=== PATIENT | female | born 1955 | race Caucasian/White ===

== ENCOUNTER 2019-09-10 21:10 | Emergency (ER) | payer OTHER ==
[2019-09-10 21:27] VITALS: BP 119/66; PULSE 56; TEMP 97.8; BMI 17.9
--- NOTE | 2019-09-10 22:47 | PDOC ---
Documentation entered by Marivel Tran SCRIBE, acting as scribe for Kelvin Bedolla MD. Kelvin Bedolla MD: This documentation has been prepared by the scribe, Marivel Tran SCRIBE, under my direction and personally reviewed by me in its entirety. I confirm that the documentation accurately reflects all work, treatment, procedures, and medical decision making performed by me. History of Present Illness - General Chief Complaint: Laceration Stated Complaint: LACERATION LEFT INDEX FINGER History Source: Patient Exam Limitations: No Limitations - History of Present Illness Initial Comments: 09/10/19 21:47 The patient is a 63-year-old female with no reported significant past medical history who presents to the emergency department with a laceration to the left index finger. The patient reports she was cutting kale with a knife when she accidentally cut her finger on the knife. Denies numbness or tingling. The patient reports her last tetanus was last year. Past History - Past Medical History Allergies/Adverse Reactions: Allergies Allergy/AdvReac Type Severity Reaction Status Date / Time Sulfa (Sulfonamide Allergy Verified 09/10/19 21:11 Antibiotics) Home Medications: Ambulatory Orders Levothyroxine Sodium [Synthroid] 200 mcg PO DAILY 09/10/19 Magnesium 30 mg PO DAILY 09/10/19 Magnesium 500 mg PO DAILY 09/10/19 Review of Systems - Review of Systems Able to Perform ROS?: Yes Comments:: 09/10/19 21:47 Constitutional - Pt denies Fever, Chills, weakness, HEENT: denies vision changes, sore throat Respiratory: Denies cough, sob, hemoptysis Cardiac: denies chest pain, palpitations, light headedness, leg swelling Abd/GI: denies abd pain, nausea, vomiting, blood per rectum, melena, diarrhea : denies dysuria, frequency, discharge Musculskelatal - denies back pain, joint swelling skin - +left index finger laceration. neurological: denies headache, numbness, focal weakness, tingling, ataxia, weakness hematologic: denies anemia, easy bruising, easy bleeding *Physical Exam - Vital Signs Last Vital Signs Temp Pulse Resp BP Pulse Ox 97.8 F 56 L 16 119/66 100 09/10/19 21:15 09/10/19 21:15 09/10/19 21:15 09/10/19 21:15 09/10/19 21:15 - Physical Exam Comments: 09/10/19 21:50 CONSTITUTIONAL: Well-appearing; well-nourished; in no apparent distress HEAD: Normocephalic; atraumatic NECK: Supple; non-tender EXT: Normal ROM in all four extremities; non-tender SKIN: +1cm laceration to the distal fingertip. Warm, dry, no rash Medical Decision Making - Medical Decision Making 09/11/19 04:39 lac repaired with topical skin adhesive [id number] Discharge - Discharge Information Problems reviewed: Yes Clinical Impression/Diagnosis: Laceration Condition: Stable Disposition: HOME - Follow up/Referral - Patient Discharge Instructions Patient Printed Discharge Instructions: DI for Laceration Repair With Dermabond - Post Discharge Activity
== END 2019-09-10 21:49 | disposition home or self-care (01) ==
LOC: FER 21:10
PROC: 0HQGXZZ Repair Left Hand Skin, External Approach (ICD-10-PCS; principal; 2019-09-10)
DX: S61.211A Laceration without foreign body of left index finger without damage to nail, initial encounter (principal); W26.0XXA Contact with knife, initial encounter; Y93.G1 Activity, food preparation and clean up; Y92.9 Unspecified place or not applicable
CPT/HCPCS: 99281-25

== ENCOUNTER 2020-09-17 14:31 | Emergency (ER) | payer OTHER | END 2020-09-17 15:56 | disposition home or self-care (01) | LOC: JVIRT 14:31 | DX: Z11.59 Encounter for screening for other viral diseases (principal) | CPT/HCPCS: C9803; Q3014-GT; U0003 ==